=== PATIENT | male | born 1970 | race Caucasian/White ===

== ENCOUNTER 2019-05-06 09:49 | Day surgery (SDC) | payer MEDICAID ==
[~2019-05-06 09:49] MED LIST: ACETAMINOPHEN 1,000 MG/100 ML BTL IVPB ONE; FAMOTIDINE 20MG TABLET PO ONE; METOCLOPRAMIDE 10 MG TABLET PO ONE; SCOPOLAMINE 1 PATCH TDSY TD ONE
[2019-05-06] MEDS ORDERED: PROPOFOL 10 MG/ML VIAL IV ONE (09:50)
[2019-05-06] MEDS ORDERED: ONDANSETRON HCL IV 4 MG/2 ML VIAL IVP ONE (09:50)
[2019-05-06] MEDS ORDERED: MIDAZOLAM HCL 2MG/2ML VIAL IV ONE (09:50)
[2019-05-06] MEDS ORDERED: SEVOFLURANE 250 ML INH ONE (09:50)
[2019-05-06] MEDS ORDERED: FENTANYL PF 100MCG/2ML VIAL IV ONE (09:50)
[2019-05-06] MEDS ORDERED: LIDOCAINE 2% MDV (20MG/ML) 20ML VIAL IV ONE (09:50)
[2019-05-06] MEDS ORDERED: BUPIVACAINE 0.25% W/EPI MPF 30ML VIAL IVP ONE (10:43)
[2019-05-06] MEDS ORDERED: RINGERS SOLUTION,LACTATED 1,000 ML IV ONE ×2 (10:45→12:28)
[2019-05-06] MEDS ORDERED: HYDROCODONE/APAP 5/325MG TABLET PO ONE (12:58)
--- NOTE | 2019-05-19 08:20 | Operative Note ---
DATE OF SURGERY: 05/06/2019 SURGEON: Xavier Ngo DO PREOPERATIVE DIAGNOSIS: Torn medial meniscus of the left knee. POSTOPERATIVE DIAGNOSES: 1. Torn medial meniscus, left knee. 2. Chondromalacia of the patellofemoral joint, left knee. OPERATION: 1. Arthroscopic partial medial meniscectomy, left knee. 2. Arthroscopic chondroplasty of the patella, left knee. DESCRIPTION OF PROCEDURE: This 49-year-old male was taken to the operating room and placed in the supine position on the operating room table. General anesthesia was induced. The left lower extremity was elevated. It was exsanguinated, and the tourniquet inflated to 300 mmHg. Arthroscopic knee andersen applied. The left knee was then prepped with Hibiclens and draped in the usual sterile fashion. An inferolateral portal was established for the 4 mm arthroscope, and initial evaluation of the joint demonstrated normal appearance of the suprapatellar pouch. However, there was grade 2 chondromalacia on the entire articulating surface of the patella being most severe in the median ridge. The trochlea appeared to be relatively normal with only minimal scuffing being identified. The medial and lateral gutters were examined and found to be normal. The rotating shaver was placed in the joint and chondroplasty of the patella was performed to stabilize the articular cartilage there because after probing, it demonstrated loose fragmented articular cartilage. We then directed our attention to the medial compartment, and a large flap tear of the medial meniscus was present. Utilizing the basket forceps and rotating shaver, we resected back to the apex of the tear, which was at approximately the 11-o'clock position. Once we had resected unstable fragments of the meniscus, it was re-probed and confirmed to be stable. The articular cartilage of the medial compartment appeared entirely normal. The intracondylar notch was examined and found to be normal. The lateral compartment was entered, and there was no evidence of pathology in the lateral compartment with normal articular cartilage and meniscus being identified. The joint was then copiously irrigated and all areas were reexamined. We re- probed the medial meniscus and found it to be stable. The joint was then suctioned and the instruments were removed. The portals were infiltrated with 0.25% Marcaine with epinephrine. Sterile dressings applied and the patient taken to the recovery room in satisfactory condition. GROSS PATHOLOGY: There was a large flap tear of the posterior horn of the medial meniscus which was very close to the meniscosynovial junction at the apex at about the 11-o'clock position. Unstable fragments were then removed, and it was re-probed to confirm stability. There was grade 2 chondromalacia noted primarily in the median ridge of the patella but other areas of degenerative change were also noted but chondroplasty was not necessary on the medial and lateral facets. MTDD
== END 2019-05-06 13:20 | disposition home or self-care (01) ==
LOC: SUR 09:49
PROVIDERS: ATTEND Orthopaedic Surgery
DX: S83.242A Other tear of medial meniscus, current injury, left knee, initial encounter (principal); M22.42 Chondromalacia patellae, left knee
CPT/HCPCS: 29881; 01400; 93005; J2405; J3010; J7120